=== PATIENT | male | born 1950 ===

== ENCOUNTER 2022-03-01 12:16 | Day surgery (SDC) | payer OTHER ==
[~2022-03-01] VITALS: Ht 177.8 cm; Wt 75.5 kg
[2022-03-01] MEDS ORDERED: HCTZ 25MG TAB25 MG PO (13:27)
[2022-03-01] MEDS ORDERED: PRILOSEC 20MG20 MG PO (13:28)
[2022-03-01] MEDS ORDERED: GLUCOPHAGE1000 MG PO (13:28)
[2022-03-01] MEDS ORDERED: PRINIVIL40 MG PO ×2 (13:29)
[2022-03-01] MEDS ORDERED: MOBIC15 MG PO (13:30)
[2022-03-01] MEDS ORDERED: ZOCOR 80MG80 MG PO (13:31)
[2022-03-01] MEDS ORDERED: GLUCOSAMIN 500 PO (13:32)
[2022-03-01] MEDS ORDERED: ASPIRIN 81M81 MG/TA2 PO (13:32)
[2022-03-01] MEDS ORDERED: MULTI VITAMINS1 TAB PO (13:33)
[2022-03-01 13:52] VITALS: BP 78/54; PULSE 58; TEMP 97.5
[2022-03-01 14:19] VITALS: BP 89/52; PULSE 84; TEMP 97.4
[2022-03-01] MEDS ORDERED: NORCO 325 MG-51 TAB PO (14:19)
[2022-03-01 14:34] VITALS: BP 94/56; PULSE 80
[2022-03-01 14:49] VITALS: BP 109/53; PULSE 88
[2022-03-01 15:04] VITALS: BP 97/53; PULSE 76
[2022-03-01 15:19] VITALS: BP 116/56; PULSE 80
--- NOTE | 2022-03-01 15:35 | NUR ---
1419 RETURNS TO ROOM 7 FROM OR PER CART. AWAKE, ALERT. RESP SPONTANEOUS, UNLABORED. MONITORS APPLIED, VITAL SIGNS OBTAINED. DRESSING TO SURGICAL SITE LEFT ANTERIOR CHEST CLEAN DRY AND INTACT. NO REDNESS OR EDEMA OBSERVED. PATIENT DENIES PAIN. 1445 TOLERATES PO JUICE WITHOUT NAUSEA. FRIEND IN ROOM. DRESSING UNCHANGED. EXPRESSES COMFORT. 1510 DISCHARGE INSTRUCTIONS REVIEWED. PATIENT VERBALIZES UNDERSTANDING. COPY OF INSTRUCTIONS PROVIDED AT DISCHARGE. 1527 SITS IN CHAIR AT BEDSIDE, DRESSES SELF. DRESSING REMAINS CLEAN DRY AND INTACT. NO REDNESS OR EDEMA. EXPRESSES COMFORT.
== END 2022-03-01 15:35 | disposition home health service (06) ==
LOC: SDCO 12:16
DX: C16.9 Malignant neoplasm of stomach, unspecified (principal); E11.9 Type 2 diabetes mellitus without complications; K21.9 Gastro-esophageal reflux disease without esophagitis
CPT/HCPCS: C1788; J1644; J2704; J7120